=== PATIENT | female | born 1970 | race Caucasian/White ===

== ENCOUNTER 2025-09-24 11:09 | Emergency (ER) | payer BC, SELFPAY ==
--- NOTE | ~2025-09-24 | XR_ITS ---
Examination: XR wrist RT min 3V Clinical History: gen right wrist pain, FOOSH INJURY Comparison: None Technique: 4 views right wrist Findings/impression: 1. No fracture or dislocation right wrist. Reviewed, dictated and finalized at location R. [employer]
--- OUTSIDE RECORDS SUMMARY | 2025-09-24 11:16 | XMS_ITS | Encounter Summary ---
Author Organization [facility] Healthcare Address [address] [place] [address] Care Team Providers Care Otr Driver Name Role Phone Jacob Orellana MD Primary Care Provider [phone] Encounter Details Date Type Department Care Team (Latest Contact Info) Description 08/06/2025 Results Follow-Up [facility] Gastroenterology at [address] [place] [address] Jose Gomez MD [address] [place] [address] [address] [place] [address] Surgical pathology Social History Tobacco Use Types Packs/Day Years Used Date Smoking Tobacco: Former Alcohol Use Standard Drinks/Week Comments Never 0 (1 standard drink = 0.6 oz pur e alcohol) AUDIT-C Answer Date Recorded Q1: How often do you have a drink containing alcohol? Never 07/14/2025 Q2: How many drinks containi ng alcohol do you have on a typical day when you are drinking? Patient does not drink Q3: How often do you have si x or more drinks on one occasion? Never 07/14/2025 Personal Safety Answer Date Recorded Have you ever been in or are you currently in a harmful physical or emotional relationship or is someone making you feel afraid or unsafe? Denies 07/25/2025 Comments No Sex and Gender Information Value Date Recorded Sex Assigned at Not on file Legal Sex Female 11:52 AM [employer] Gender Identity Not on file Sexual Orientation Not on file documented as of this encounter Plan of Treatment Not on file documented as of this encounter Visit Diagnoses Not on filedocumented in this encounter Care Teams Otr Driver Relationship Specialty Start Date End Date Jacob Orellana MD [address] [address] PCP - General 02/22/19 documented as of this encounter
[2025-09-24 11:18] VITALS: BP 140/91; PULSE 73; RESP 16; TEMP 36.6; O2SAT 100
--- NOTE | 2025-09-24 11:33 | ED.UPPEXIN ---
HPI - Extremity Injury (Upper) General Chief Complaint: Extremity Injury, Upper Stated Complaint: Fall Injury/Right Wrist Time Seen by Provider: 09/24/25 11:20 Source: patient Mode of arrival: ambulatory Limitations: no limitations History of Present Illness HPI narrative: Rebecca is a 54 year old female patient presenting to the clinic today with c/o right wrist pain/injury from a fall on September 15. Reports pain to the radial wrist that is now radiating up the right arm. Has ice, wrapped, tylenol, and motrin for pain. Is concerned that it may be broken. Related Data Home Medications ?Medication ?Instructions ?Recorded ?Confirmed ?Last Taken ?Type ezetimibe 10 mg tablet mg 09/24/25 Unknown History metoprolol succinate 100 mg mg PO 09/24/25 Unknown History tablet,extended release 24 hr rosuvastatin 10 mg tablet mg 09/24/25 Unknown History semaglutide 0.25 mg or 0.5 mg (2 mg subcut 09/24/25 Unknown History mg/3 mL) subcutaneous pen injector (Ozempic) Allergies Allergy/AdvReac Type Severity Reaction Status Date / Time SUNI Inhibitors Allergy Unknown Verified 09/24/25 11:25 codeine Allergy Unknown Verified 09/24/25 11:25 hydrocodone Allergy Unknown Verified 09/24/25 11:25 metformin Allergy Unknown Verified 09/24/25 11:25 Review of Systems Review of Systems: Pertinent positives per HPI. Patient denies any fever, chills, rash, headache, visual changes, dizziness, cough, runny nose, sore throat, shortness of breath, chest pain, palpitations, nausea, vomiting, diarrhea, constipation, abdominal pain, or any urinary issues. PMFSH Comments At the time of my signature, I reviewed and agree with the nursing past medical, surgical, social, and family history. There is no relevant family history pertinent to the patient complaint. Exam Narrative: General: Well-developed, well nourished, in no apparent distress Head: Normocephalic, atraumatic. Cardio: Regular rate and rhythm, s1 and s2 normal, no murmur appreciated. Resp: Clear to auscultation bilaterally, no rhonchi, rales, wheezing or rubs. Musculoskeletal: No deformity, tender to palpation over the right radial wrist, limited range of motion due to pain, mild swelling noted over the wrist joint, muscle strength strong and equal, peripheral pulse strong, no edema, no cyanosis, normal gait and station Course Course Emergency Course: Portions of this record may have been created with voice recognition software. Level of Care: Express Care Visit Vital Signs Vital signs: Vital Signs Temperature 36.6 C 09/24/25 11:18 Pulse Rate 73 09/24/25 11:18 Respiratory Rate 16 09/24/25 11:18 Blood Pressure 140/91 H 09/24/25 11:18 Pulse Oximetry 100 09/24/25 11:18 Oxygen Delivery Room Air 09/24/25 11:18 Temperature 36.6 C 09/24/25 11:18 Pulse Rate 73 09/24/25 11:18 Respiratory Rate 16 09/24/25 11:18 Blood Pressure 140/91 H 09/24/25 11:18 Pulse Oximetry 100 09/24/25 11:18 Oxygen Delivery Room Air 09/24/25 11:18 Vital signs reviewed MDM - Extremity Injury (Upper) MDM Narrative Medical decision making narrative: At the time of visit patient is resting comfortably on the exam table. Patient appears to be nontoxic. C/o right wrist pain/injury from a fall on September 15. Reports pain to the radial wrist that is now radiating up the right arm. Has ice, wrapped, tylenol, and motrin for pain. Has been wearing a carpal tunnel wrist brace. Is concerned that it may be broken. On exam patient has tenderness to palpation over the right radial wrist with radiation of pain into her right forearm, limited range of motion due to pain. Mild swelling over the wrist joint. Currently rating her pain a 6/10. Diagnostics: X-ray of the right wrist is negative for any sign of fracture or malalignment. Plan: I suspect patient has a right wrist sprain with some arthritis. Prescription for Medrol Dosepak was sent to the pharmacy. Supportive measures were discussed with the patient and they voiced understanding discharge instructions and agrees to treatment plan. Return precautions reviewed Differential Diagnosis Differential diagnosis: Likely sprain and strain of wrist and fracture of wrist Imaging Data Radiologist's impression: [facility] [address] XRay Report Signed Patient: Rebecca Patino : 1970 MR#: [id number] Age: 54 Acct:[id number] Loc: [facility] ADM Date: 09/24/[address]: Ordering Physician: Jeremiah Castillo APRN Date of Service: 09/24/25 Procedure(s): XR wrist RT min 3V Accession Number(s): [id number] cc: Esteban, Ray BONE ([place]); Jeremiah Castillo APRN~ Examination: XR wrist RT min 3V Clinical History: gen right wrist pain, FOOSH INJURY Comparison: None Technique: 4 views right wrist Findings/impression: 1. No fracture or dislocation right wrist. Reviewed, dictated and finalized at location [facility]. [employer] [employer] Please be advised this is a medical document. It is intended for [id number] communication. It is written in medical language and may contain unfamiliar abbreviations or verbiage. Medical documents are intended to carry relevant information, facts as evident, and the clinical opinion of the practitioner at the time of the encounter. This report may have been done utilizing a voice recognition system. Attempts have been made to correct errors. However, there may be uncorrected grammatical, spelling, and recognition errors present. The file time of this note does not necessarily represent the time of service. Dictated By: Abe Davalos MD 09/24/25 1150 Signed By: <Electronically signed by Abe Davalos MD in OV> 09/24/25 1152 Discharge Plan Discharge Clinical Impression: Right wrist sprain Qualifiers: Encounter type: initial encounter Wrist sprain location: radiocarpal joint Qualified Code(s): S63.521A - Sprain of radiocarpal joint of right wrist, initial encounter Patient Disposition: Home Condition: Stable Instructions: Antibiotic Form, Wrist Injury (ED), Wrist Sprain (ED) Additional Instructions: X-rays are negative for any sign of fracture or malalignment of the right wrist Rest, ice, elevate, and wear cock-up wrist splint as directed Tylenol/motrin for pain as discussed. Take Medrol Dosepak as prescribed Follow up with your PCP if symptoms persist more than 1 week. Patient Language: Mexican Prescriptions: New methylprednisolone [Medrol (Avelino)] 4 mg tablets,dose pack See Rx Instructions PO .COMPLEX Qty: 21 0RF Rx Instructions: orally per package directions No Action Ozempic 0.25 mg or 0.5 mg (2 mg/3 mL) pen injector SUBCUT metoprolol succinate 100 mg tablet extended release 24 hr PO ezetimibe 10 mg tablet rosuvastatin 10 mg tablet Follow-up/Referrals: Esteban,MD Bell ([place]) [Primary Care Provider] Time of Disposition: 11:53 Quality NIHSS Nursing Documentation ED NIHSS nursing documentation: reviewed/agree
== END 2025-09-24 12:05 | disposition home or self-care (01) ==
PROVIDERS: Emergency Provider Nurse Practitioner Family; PCP Internal Medicine
DX: S63.521A Sprain of radiocarpal joint of right wrist, initial encounter (principal); W19.XXXA Unspecified fall, initial encounter; I10 Essential (primary) hypertension; E11.9 Type 2 diabetes mellitus without complications; Z79.85 Long-term (current) use of injectable non-insulin antidiabetic drugs; E78.00 Pure hypercholesterolemia, unspecified; Z86.73 Personal history of transient ischemic attack (TIA), and cerebral infarction without residual deficits
CPT/HCPCS: 73110; 99203; G0463